=== PATIENT | male | born 1940 | race Caucasian/White ===

== ENCOUNTER 2016-12-20 11:12 | Day surgery (SDC) | payer MEDICARE, OTHER ==
[~2016-12-20] VITALS: Ht 177.8 cm; Wt 98.9 kg
[2016-12-20] VITALS (7 sets, daily range): BP systolic 131–143; BP diastolic 64–84; PULSE 60–70; TEMP 97.4–98.5
[2016-12-20] MEDS ORDERED: ARICEPT 5MG PO (12:12)
[2016-12-20] MEDS ORDERED: MULTIPLE VITAMI1 CAP PO (12:13)
[2016-12-20] MEDS ORDERED: DETROL LA4 PO (12:13)
[2016-12-20] MEDS ORDERED: ASPIRIN E.C. 8181 MG PO (12:14)
[2016-12-20] MEDS ORDERED: FISH OIL 500 M1 EAC1 PO (12:15)
[2016-12-20] MEDS ORDERED: NORCO 325 MG-51 TAB PO (14:03)
[2016-12-20] MEDS ORDERED: PYRIDIUM 100MG100 MG PO (14:04)
[2016-12-20] MEDS ORDERED: SENOKOT S 50 MG1 TAB PO (14:05)
== END 2016-12-20 15:40 | disposition home or self-care (01) ==
LOC: SDCO 11:12
DX: N40.2 Nodular prostate without lower urinary tract symptoms (principal); R31.29 Other microscopic hematuria; G30.9 Alzheimer's disease, unspecified; F02.80 Dementia in other diseases classified elsewhere, unspecified severity, without behavioral disturbance, psychotic disturbance, mood disturbance, and anxiety; M19.90 Unspecified osteoarthritis, unspecified site; K21.9 Gastro-esophageal reflux disease without esophagitis; G47.30 Sleep apnea, unspecified; Z79.82 Long term (current) use of aspirin; Z79.899 Other long term (current) drug therapy
CPT/HCPCS: J0690; J1100; J2405; J2704; J3010; J7120

== ENCOUNTER 2019-11-10 07:13 | Day surgery (SDC) | payer MEDICARE, OTHER ==
[~2019-11-10] VITALS: Ht 177.8 cm; Wt 107.3 kg
[~2019-11-10 07:13] MED LIST: ARICEPT 5MG PO; ASPIRIN E.C. 8181 MG PO; DETROL LA4 PO; MASON NATURAL1200 MG PO; MULTIPLE VITAMI1 TA5 PO; NORCO 325 MG-51 TAB PO; PYRIDIUM 100MG100 MG PO; STOOL SOFTENER100 M2 PO
[2019-11-10] MEDS ORDERED: LASIX 40MG TABL40 MG PO (08:04)
[2019-11-10] MEDS ORDERED: LASIX 80MG TABL80 MG PO (08:06)
[2019-11-10] MEDS ORDERED: ALDACTONE 25MG25 M1 PO (08:07)
[2019-11-10] MEDS ORDERED: NEURONTIN600 MG/TAB PO (08:08)
[2019-11-10] MEDS ORDERED: PREDNISONE10 MG PO (08:08)
[2019-11-10] MEDS ORDERED: CEPHALEXIN500 M1 PO (08:09)
[2019-11-10] MEDS ORDERED: BACTROBAN 22GM22 GM TP (08:10)
[2019-11-10] MEDS ORDERED: ZYRTEC 10MG10 MG PO (08:10)
[2019-11-10] MEDS ORDERED: TYLENOL 500MG500 MG PO (08:11)
[2019-11-10 08:43] VITALS: BP 130/67; PULSE 76; TEMP 97.3
[2019-11-10 10:20] VITALS: BP 126/65; PULSE 76; TEMP 98.6
--- NOTE | 2019-11-10 10:20 | NUR ---
Patient [place] [facility] [place] monitor applied, vitals stable. Patient's family brought to bedside. Patient resting comfortably, denies pain or nausea.
[2019-11-10 10:30] VITALS: BP 120/67; PULSE 72
[2019-11-10 10:45] VITALS: BP 114/63; PULSE 71
[2019-11-10 11:00] VITALS: BP 126/60; PULSE 72
--- NOTE | 2019-11-10 11:00 | NUR ---
Patient starting to wake up more at this time. Patient sat up and given muffin and soda.
[2019-11-10 11:15] VITALS: BP 125/63; PULSE 67
--- NOTE | 2019-11-10 11:15 | NUR ---
Patient tolerates food and drink without any nausea. Reports slight discomfort at incision site, denies wanting any pain medication. Incision has two small areas of drainage noted and marked. Family educated to monitor marked areas on dressing.
--- NOTE | 2019-11-10 11:30 | NUR ---
Patient up to restroom at this time and is able to urinate and have a bowel movement without any difficulties. Patient is steady on feet with standby assist.
--- NOTE | 2019-11-10 11:50 | NUR ---
Dismissal instructions gone over with patient and patient's family. All voice understanding and all questions answered.
--- NOTE | 2019-11-10 11:55 | NUR ---
Patient discharged to private vehicle via wheelchair. Patient's daughter is driving the vehicle. Patient and family leave thanking staff for services.
== END 2019-11-10 11:55 | disposition home or self-care (01) ==
LOC: SDCO 07:13
DX: N39.41 Urge incontinence (principal); G30.9 Alzheimer's disease, unspecified; F02.80 Dementia in other diseases classified elsewhere, unspecified severity, without behavioral disturbance, psychotic disturbance, mood disturbance, and anxiety; M19.90 Unspecified osteoarthritis, unspecified site; K21.9 Gastro-esophageal reflux disease without esophagitis; N32.81 Overactive bladder; M35.3 Polymyalgia rheumatica; G47.33 Obstructive sleep apnea (adult) (pediatric); Z79.82 Long term (current) use of aspirin; Z88.1 Allergy status to other antibiotic agents; Z79.51 Long term (current) use of inhaled steroids; Z83.3 Family history of diabetes mellitus; Z82.49 Family history of ischemic heart disease and other diseases of the circulatory system; Z80.9 Family history of malignant neoplasm, unspecified; Z91.030 Bee allergy status
CPT/HCPCS: C1767; C1778; C1787; C1894; J0690; J1580; J1720; J3010; J7120